=== PATIENT | female | born 1970 | race Caucasian/White ===

== ENCOUNTER → 2018-04-28 07:00 | Outpatient (CLI) | payer BC, SELFPAY ==
[2018-04-28 08:02] LABS: Add Manual Diff / Slide Review NO; Basophils Percent Auto 1.3 % (0-2); Eosinophils Percent Auto 5.6 % (2-4); Hematocrit 40.4 % (36-46); Hemoglobin 13.7 g/dL (12.0-16.0); Lymphocytes Percent Auto 22.5 % (25-40); Mean Corpuscular HGB Conc 33.9 % (30-36); Mean Corpuscular Hemoglobin 32.9 PG (26-34); Mean Corpuscular Volume 97.2 fL (80-100); Monocytes Percent Auto 6.7 % (3-14); Neutrophils Absolute Auto 5300 /uL (3000-5900); Neutrophils Percent Auto 63.9 % (50-75); Platelet Count 281 X10^3/uL (150-400); Red Blood Cell Count 4.15 X10^6/uL (4.0-5.2); Red Cell Distribution Width 12.9 % (11.6-14.8); White Blood Cell Count 8.2 X10^3/uL (4.5-11.0)
[2018-04-28 08:04] LABS: Appearance Urine UA CLEAR; Bilirubin Urine UA NEGATIVE (NEGATIVE); Color Urine UA YELLOW; Glucose Urine UA NEGATIVE (Normal); Ketones Urine UA NEGATIVE (NEGATIVE); Leukocyte Esterase Urine UA NEGATIVE (NEGATIVE); Nitrite Urine UA Negative (Negative); Occult Blood Urine UA 3+ (Negative); Protein Urine UA NEGATIVE (Negative); Urobilinogen Urine UA 0.2 E.U./dL (0.2); pH Urine UA 7.5 (4.5-8.0)
[2018-04-28 08:08] LABS: Alanine Aminotransferase 25 IU/L (9-52); Albumin 3.9 g/dL (3.5-5.0); Albumin Globulin Ratio 1.4 (1.0-2.8); Alkaline Phosphatase 52 U/L (38-126); Aspartate Aminotransferase 19 IU/L (14-36); BUN Creatinine Ratio 15.7 (6-22); Bilirubin Total 0.5 mg/dL (0.2-1.3); Blood Urea Nitrogen 11 mg/dL (7-17); Calcium 9.3 mg/dL (8.4-10.2); Carbon Dioxide 29 mmol/L (22-32); Chloride 104 mmol/L (98-107); Cholesterol 155 mg/dL (140-199); Estimated Glomerular Filt Rate > 60.0 mL/min (>60); Globulin 2.7 g/dL (1.7-4.1); Glucose 92 mg/dL (70-100); HDL Cholesterol 52 mg/dL (40-60); HEMOLYSIS < 15 (0-50); LDL Cholesterol Calculated 89 mg/dL (<100); Potassium 4.4 mmol/L (3.4-5.1); Sodium 141 mmol/L (137-145); Total Protein 6.6 g/dL (6.3-8.2); Triglycerides 70 mg/dL (35-150)
[2018-04-28 08:37] LABS: WBC Urine None Seen (0-5/HPF)
[2018-04-28 08:39] LABS: TSH w/ Reflex to FT4 1.51 uIU/mL (0.47-4.68)
[2018-04-28 08:40] LABS: RBC Urine 10-30/HPF (0-5/HPF)
[2018-04-28 08:41] LABS: Bacteria Urine Few (2-10); Culture Indicated Urine Cult Not Indicated; Squamous Epithelial Cell Urine 0-1 /HPF
[2018-04-28 09:00] LABS: Hemoglobin A1C% w Est Avg Glu 4.8 % (4.0-6.0)
== END ==
PROVIDERS: PCP Family Medicine; Visit Provider Nurse Practitioner Family
DX: Z00.00 Encounter for general adult medical examination without abnormal findings (principal); E66.9 Obesity, unspecified
CPT/HCPCS: 36415; 80053; 80061; 81003; 81015; 83036; 84443; 85025

== ENCOUNTER → 2018-06-15 15:01 | Outpatient (CLI) | payer BC, SELFPAY ==
--- NOTE | 2018-06-15 15:02 | DI.MG.S_ITS ---
BILATERAL DIGITAL SCREENING MAMMOGRAM 3D/2D WITH CAD: 06/15/2018 CLINICAL: Routine screening. Comparison is made to exams dated: 06/27/2015 mammogram, 08/24/2013 mammogram, and 04/04/2000 mammogram - [facility]. There are scattered fibroglandular elements in both breasts. Current study was also evaluated with a Computer Aided Detection (CAD) system. No significant masses, calcifications, or other findings are seen in either breast. There has been no significant interval change. IMPRESSION: NEGATIVE There is no mammographic evidence of malignancy. A 1 year screening mammogram is recommended. This exam was interpreted at Station ID: [id number]. NOTE: For mammograms, a report in lay terms will be sent to the patient. Approximately 15% of breast malignancies will not be visualized mammographically. In the management of a palpable breast mass, a negative mammogram must not discourage biopsy of a clinically suspicious lesion. Electronically Signed By: Jevon mariscal/[email or web address]:06/16/2018 02:37:18 letter sent: Normal Exam ACR BI-RADS Category 1: Negative 3341F
== END ==
PROVIDERS: PCP Family Medicine; Visit Provider Nurse Practitioner Family
DX: Z12.31 Encounter for screening mammogram for malignant neoplasm of breast (principal)
CPT/HCPCS: 77063; 77067

== ENCOUNTER → 2019-01-13 08:35 | Outpatient (CLI) | payer BC, SELFPAY ==
[2019-01-13 09:42] LABS: Add Manual Diff / Slide Review NO; Basophils Absolute Auto 100 /uL (0-100); Basophils Percent Auto 1.1 % (0-2); Eosinophils Absolute Auto 500 /uL (0-450); Eosinophils Percent Auto 6.1 % (2-4); Hematocrit 41.2 % (36-46); Hemoglobin 14.2 g/dL (12.0-16.0); Lymphocytes Absolute Auto 1900 /uL (1100-4500); Lymphocytes Percent Auto 21.3 % (25-40); Mean Corpuscular HGB Conc 34.5 % (30-36); Mean Corpuscular Volume 95.7 fL (80-100); Monocytes Absolute Auto 500 /uL (0-900); Monocytes Percent Auto 5.8 % (3-14); Neutrophils Absolute Auto 5700 /uL (1500-7000); Neutrophils Percent Auto 65.7 % (50-75); Platelet Count 289 X10^3/uL (150-400); Red Blood Cell Count 4.31 X10^6/uL (4.0-5.2); Red Cell Distribution Width 13.3 % (11.6-14.8); White Blood Cell Count 8.7 X10^3/uL (4.5-11.0)
[2019-01-13 09:51] LABS: Alanine Aminotransferase 24 IU/L (9-52); Albumin 4.1 g/dL (3.5-5.0); Albumin Globulin Ratio 1.5 (1.0-2.8); Alkaline Phosphatase 61 U/L (38-126); Aspartate Aminotransferase 19 IU/L (14-36); BUN Creatinine Ratio 13.3 (6-22); Bilirubin Total 0.5 mg/dL (0.2-1.3); Blood Urea Nitrogen 8 mg/dL (7-17); Calcium 9.1 mg/dL (8.4-10.2); Carbon Dioxide 24 mmol/L (22-32); Chloride 105 mmol/L (98-107); Cholesterol 173 mg/dL (140-199); Estimated Glomerular Filt Rate > 60.0 mL/min (>60); Globulin 2.8 g/dL (1.7-4.1); Glucose 93 mg/dL (70-100); HDL Cholesterol 61 mg/dL (40-60); HEMOLYSIS < 15 (0-50); LDL Cholesterol Calculated 93 mg/dL (<100); Potassium 4.5 mmol/L (3.4-5.1); Sodium 138 mmol/L (137-145); Total Protein 6.9 g/dL (6.3-8.2); Triglycerides 96 mg/dL (35-150)
[2019-01-13 11:10] LABS: Thyroid Stimulating Hormone 2.62 uIU/mL (0.47-4.68)
== END ==
PROVIDERS: PCP Physician Assistant; Visit Provider Physician Assistant
DX: Z00.00 Encounter for general adult medical examination without abnormal findings (principal); Z13.1 Encounter for screening for diabetes mellitus; Z13.220 Encounter for screening for lipoid disorders; Z13.6 Encounter for screening for cardiovascular disorders
CPT/HCPCS: 36415; 80053; 80061; 84443; 85025

== ENCOUNTER → 2019-10-24 10:27 | Outpatient (CLI) | payer BC, SELFPAY ==
[2019-10-24 10:57] LABS: Add Manual Diff / Slide Review NO; Basophils Absolute Auto 100 /uL (0-100); Basophils Percent Auto 1.9 % (0-2); Eosinophils Absolute Auto 500 /uL (0-450); Eosinophils Percent Auto 6.9 % (2-4); Hematocrit 39.1 % (36-46); Hemoglobin 13.8 g/dL (12.0-16.0); Lymphocytes Absolute Auto 1700 /uL (1100-4500); Lymphocytes Percent Auto 22.3 % (25-40); Mean Corpuscular HGB Conc 35.3 % (30-36); Mean Corpuscular Hemoglobin 33.4 PG (26-34); Mean Corpuscular Volume 94.5 fL (80-100); Monocytes Absolute Auto 500 /uL (0-900); Monocytes Percent Auto 6.2 % (3-14); Neutrophils Absolute Auto 4800 /uL (1500-7000); Neutrophils Percent Auto 62.7 % (50-75); Platelet Count 267 X10^3/uL (150-400); Red Blood Cell Count 4.14 X10^6/uL (4.0-5.2); Red Cell Distribution Width 13.2 % (11.6-14.8); White Blood Cell Count 7.7 X10^3/uL (4.5-11.0)
[2019-10-24 11:10] LABS: Alanine Aminotransferase 16 IU/L (<35); Albumin 4.3 g/dL (3.5-5.0); Albumin Globulin Ratio 1.5 (1.0-2.8); Alkaline Phosphatase 62 U/L (38-126); Aspartate Aminotransferase 21 IU/L (14-36); BUN Creatinine Ratio 15.7 (6-22); Bilirubin Total 0.6 mg/dL (0.2-1.3); Blood Urea Nitrogen 11 mg/dL (7-17); Calcium 9.6 mg/dL (8.4-10.2); Carbon Dioxide 27 mmol/L (22-32); Chloride 105 mmol/L (98-107); Cholesterol 183 mg/dL (140-199); Estimated Glomerular Filt Rate > 60.0 mL/min (>60); Globulin 2.9 g/dL (1.7-4.1); Glucose 82 mg/dL (70-100); HDL Cholesterol 56 mg/dL (40-60); HEMOLYSIS < 15 (0-50); LDL Cholesterol Calculated 108 mg/dL (<100); Potassium 4.2 mmol/L (3.4-5.1); Sodium 139 mmol/L (137-145); Total Protein 7.2 g/dL (6.3-8.2); Triglycerides 93 mg/dL (35-150)
[2019-10-24 11:48] LABS: Thyroid Stimulating Hormone 1.01 uIU/mL (0.47-4.68)
== END ==
PROVIDERS: PCP Physician Assistant; Visit Provider Physician Assistant
DX: Z00.00 Encounter for general adult medical examination without abnormal findings (principal)
CPT/HCPCS: 36415; 80053; 80061; 84443; 85025

== ENCOUNTER → 2020-08-13 09:52 | Outpatient (CLI) | payer BC, SELFPAY ==
--- NOTE | 2020-08-13 09:53 | DI.RAD.S_ITS ---
PROCEDURE: XR HIP W PEL IF DONE LT MIN 4V INDICATIONS: bilateral hip pain and LBP x years TECHNIQUE: AP pelvis with lateral view(s) of the bilateral hip(s). COMPARISON: None. FINDINGS: Bones: No fractures or dislocations. Pelvic ring appears intact. No suspicious bony lesions. Soft tissues: The visualized bowel gas pattern is normal. No suspicious soft tissue calcifications. IMPRESSION: No trauma found, no significant degenerative change identified. Dictated by: Malik North M.D. on 08/13/2020 at 10:17 Approved by: Malik North M.D. on 08/13/2020 at 10:18
--- NOTE | 2020-08-13 09:53 | DI.RAD.S_ITS ---
PROCEDURE: XR LUMBAR SPINE 2-3V INDICATIONS: bilateral hip pain and LBP x years TECHNIQUE: 3 views of the lumbar spine were acquired. COMPARISON: None. FINDINGS: Bones: 5 [id number] vertebrae are present. There is normal bony alignment. No vertebral body compression fractures. No suspicious bony lesions. Soft tissues: Overlying bowel gas pattern is normal. No suspicious soft tissue calcifications. IMPRESSION: No spinal or foraminal stenosis suspected. No prior compression fracture found. Dictated by: Malik North M.D. on 08/13/2020 at 10:17 Approved by: Malik North M.D. on 08/13/2020 at 10:17
== END ==
PROVIDERS: PCP Registered Nurse Diabetes Educator; Referring Provider Registered Nurse Diabetes Educator; Visit Provider Registered Nurse Diabetes Educator
DX: M25.551 Pain in right hip (principal); M25.552 Pain in left hip; M54.5 Low back pain; G89.29 Other chronic pain
CPT/HCPCS: 72100; 73522

== ENCOUNTER → 2020-08-29 15:25 | Outpatient (CLI) | payer BC, SELFPAY ==
--- NOTE | 2020-08-29 15:26 | DI.MG.S_ITS ---
BILATERAL DIGITAL SCREENING MAMMOGRAM 3D/2D WITH CAD: 08/29/2020 CLINICAL: Routine screening. Comparison is made to exams dated: 06/15/2018 mammogram, 06/27/2015 mammogram, and 08/24/2013 mammogram - [facility]. There are scattered fibroglandular elements in both breasts. Current study was also evaluated with a Computer Aided Detection (CAD) system. No significant masses, calcifications, or other findings are seen in either breast. IMPRESSION: NEGATIVE There is no mammographic evidence of malignancy. A 1 year screening mammogram is recommended. This exam was interpreted at Station ID: [id number]. NOTE: For mammograms, a report in lay terms will be sent to the patient. Approximately 15% of breast malignancies will not be visualized mammographically. In the management of a palpable breast mass, a negative mammogram must not discourage biopsy of a clinically suspicious lesion. Electronically Signed By: Fartun chen/jonatan:09/02/2020 10:26:05 letter sent: Normal Exam ACR BI-RADS Category 1: Negative 3341F
== END ==
PROVIDERS: PCP Registered Nurse Diabetes Educator; Referring Provider Registered Nurse Diabetes Educator; Visit Provider Registered Nurse Diabetes Educator
DX: Z12.31 Encounter for screening mammogram for malignant neoplasm of breast (principal)
CPT/HCPCS: 77063; 77067

== ENCOUNTER → 2021-01-10 08:05 | Outpatient (CLI) | payer OTHER, SELFPAY ==
[2021-01-10 09:17] LABS: Hematocrit 40.4 % (36-46); Hemoglobin 13.9 g/dL (12.0-16.0); Mean Corpuscular HGB Conc 34.5 % (30-36); Mean Corpuscular Hemoglobin 32.9 PG (26-34); Mean Corpuscular Volume 95.6 fL (80-100); Platelet Count 266 X10^3/uL (150-400); Red Blood Cell Count 4.23 X10^6/uL (4.0-5.2); Red Cell Distribution Width 12.6 % (11.6-14.8); White Blood Cell Count 8.2 X10^3/uL (4.5-11.0)
[2021-01-10 09:36] LABS: Alanine Aminotransferase 25 IU/L (<35); Albumin 4.1 g/dL (3.5-5.0); Albumin Globulin Ratio 1.5 (1.0-2.8); Alkaline Phosphatase 76 U/L (38-126); Aspartate Aminotransferase 26 IU/L (14-36); BUN Creatinine Ratio 14.7 (6-22); Bilirubin Total 0.5 mg/dL (0.2-1.3); Blood Urea Nitrogen 10 mg/dL (7-17); Carbon Dioxide 28 mmol/L (22-32); Chloride 104 mmol/L (98-107); Cholesterol 199 mg/dL (140-199); Estimated Glomerular Filt Rate > 60.0 mL/min (>60); Globulin 2.8 g/dL (1.7-4.1); Glucose 95 mg/dL (70-100); HDL Cholesterol 68 mg/dL (40-60); HEMOLYSIS < 15 (0-50); LDL Cholesterol Calculated 110 mg/dL (<100); Potassium 4.3 mmol/L (3.4-5.1); Sodium 138 mmol/L (137-145); Total Protein 6.9 g/dL (6.3-8.2); Triglycerides 107 mg/dL (35-150)
[2021-01-10 10:45] LABS: TSH w/ Reflex to FT4 1.93 uIU/mL (0.47-4.68)
== END ==
PROVIDERS: PCP Registered Nurse Diabetes Educator; Referring Provider Registered Nurse Diabetes Educator; Visit Provider Registered Nurse Diabetes Educator
DX: Z00.00 Encounter for general adult medical examination without abnormal findings (principal)
CPT/HCPCS: 36415; 80053; 80061; 84443; 85027

== ENCOUNTER → 2021-05-02 09:50 | Outpatient (CLI) | payer OTHER, SELFPAY ==
[2021-05-02 10:48] LABS: COVID19 -Nasal RAPID POSITIVE (Negative)
== END ==
PROVIDERS: PCP Registered Nurse Diabetes Educator; Visit Provider Student in an Organized Health Care Education/Training Program
DX: U07.1 COVID-19 (principal)
CPT/HCPCS: 87635

== ENCOUNTER → 2021-09-08 08:26 | Outpatient (CLI) | payer OTHER, SELFPAY ==
--- NOTE | 2021-09-08 | DI.MG.S_ITS ---
BILATERAL DIGITAL SCREENING MAMMOGRAM 3D/2D WITH CAD: 09/08/2021 CLINICAL: Routine screening. Comparison is made to exams dated: 08/29/2020 mammogram, 06/15/2018 mammogram, and 06/27/2015 mammogram - [facility]. There are scattered fibroglandular elements in both breasts. Current study was also evaluated with a Computer Aided Detection (CAD) system. No significant masses, calcifications, or other findings are seen in either breast. There has been no significant interval change. IMPRESSION: NEGATIVE There is no mammographic evidence of malignancy. A 1 year screening mammogram is recommended. This exam was interpreted at Station ID: [id number]. NOTE: For mammograms, a report in lay terms will be sent to the patient. Approximately 15% of breast malignancies will not be visualized mammographically. In the management of a palpable breast mass, a negative mammogram must not discourage biopsy of a clinically suspicious lesion. Electronically Signed By: Goldy Evans M.D. at/jonatan:09/08/2021 13:02:58 letter sent: Normal Exam ACR BI-RADS Category 1: Negative 3341F
== END ==
PROVIDERS: PCP Registered Nurse Diabetes Educator; Referring Provider Registered Nurse Diabetes Educator; Visit Provider Registered Nurse Diabetes Educator
DX: Z12.31 Encounter for screening mammogram for malignant neoplasm of breast (principal)
CPT/HCPCS: 77063; 77067

== ENCOUNTER → 2022-03-04 15:51 | Outpatient (CLI) | payer OTHER, SELFPAY ==
[2022-03-04 16:15] LABS: COVID19 -Nasal RAPID Negative (Negative)
== END ==
PROVIDERS: PCP Registered Nurse Diabetes Educator; Visit Provider Surgery
DX: Z01.812 Encounter for preprocedural laboratory examination (principal); Z20.822 Contact with and (suspected) exposure to COVID-19
CPT/HCPCS: 87635; C9803

== ENCOUNTER 2022-03-05 08:13 | Day surgery (SDC) | payer OTHER, SELFPAY ==
[2022-03-05 08:32] VITALS: BP 117/82; PULSE 76; RESP 16; TEMP 36.4; O2SAT 98
[2022-03-05 08:36] VITALS: BMI 30.2
[2022-03-05] MEDS: LACTATED RINGERS 1,000 ML 150 ML IV (08:50)
--- NOTE | 2022-03-05 08:53 | PM.HP.1 ---
History of Present Illness History of Present Illness Date Patient Seen: 03/05/22 Time Patient Seen: 08:53 Chief complaint: SDC Narrative: first colonoscopy for colon cancer screening. No family history or symptoms concerning for colon cancer Patient History Medical History Adjustment disorder with mixed anxiety and depressed mood Chicken pox (1975) Chronic headaches Chronic low back pain CTS (carpal tunnel syndrome) Elevated LDL cholesterol level Hip pain, bilateral Migraines (2009) Surgical History Anesthesia Status post delivery (11/28/95) Family & Social History Family History Father Heart disease Hypertension Mesothelioma Grandfather Cancer Mother Age: 68 COPD (chronic obstructive pulmonary disease) Grandfather Cancer Grandmother Cancer Social History: household members spouse Tobacco & Substance use: Smoking Status Never smoker alcohol intake current alcohol intake frequency other Substance Use Type does not use Meds Home Medications and Allergies Home Medications Medication Instructions Recorded Confirmed Type lorazepam 0.5 mg tablet 0.5 mg PO BEDTIME PRN #20 tab 05/09/20 03/05/22 Rx triamcinolone acetonide 0.5 % 1 applictn TOP DAILY PRN #45 gram 05/15/20 03/05/22 Rx topical cream omeprazole 20 mg capsule,delayed 20 mg PO DAILY PRN #90 cap 01/14/21 03/05/22 Rx release sumatriptan succinate 100 mg 100 mg PO PRN PRN #30 tab 07/27/21 03/05/22 Rx tablet (Imitrex) meloxicam 7.5 mg tablet 15 mg PO DAILY #60 tab 03/02/22 03/05/22 Rx Allergies Allergy/AdvReac Type Severity Reaction Status Date / Time No Known Drug Allergies Allergy Verified 03/05/22 08:34 Review of Systems Review of Systems ROS: Yes All systems reviewed with the patient and are negative except as otherwise documented Exam Vital Signs (past 8 hours): - 03/05/22 08:32 Temperature 97.6 F Pulse Rate 76 Respiratory Rate 16 Blood Pressure 117/82 Pulse Oximetry 98 Oxygen Delivery Method Room Air Const General: cooperative and healthy appearing Nutritional Appearance: average body habitus Orientation: alert, awake and oriented x3 HENMT Head: normal to inspection, normocephalic and atraumatic Eyes General: appearance normal, both eyes and all related structures Sclera: sclerae normal Neck Neck: normal visual inspection and full ROM Chest Chest: normal inspection of the chest Resp Effort & Inspection: normal respiratory effort and able to speak in complete sentences Cardio Rate: regular rate Rhythm: regular rhythm GI Inspection: normal to inspection Skin General: no rashes or lesions noted Neuro General: patient alert and patient oriented x3 Speech: speech normal Extrem General: normal to inspection and full ROM Psych Mental Status: mental status grossly normal Judgment: judgment good Assessment & Plan Assessment & Plan narrative: colonoscopy for colon cancer screening using moderate sedation COVID-19 COVID-19 status: Negative Time Spent With Patient Time with patient: less than 30 minutes Critical Care time: I spent a total of [] minutes of critical care time on this patient's care today; this time is exclusive of procedural time.
--- NOTE | 2022-03-05 09:01 | PM.OP.COLON ---
Operative Date/Time/Diagnoses Date of procedure: 03/05/22 Time of procedure: 09:01 Pre-op diagnosis: colon cancer screening Post-op diagnosis: same Procedure & Clinicians Study performed: colonoscopy with moderate sedation Same procedure as scheduled: Yes Indications: Colon cancer screening Surgeon: Pina Cary Procedure Notes SCOAP/Timeout: Done Procedure in detail: Preop diagnosis: Colon cancer screening Postop diagnosis: Same Operative procedure: Colonoscopy with moderate sedation Surgeon: Maura Cary MD anesthetic: Versed 5 mg fentanyl 100 mcg Findings: Normal colonoscopy. No polyps, no diverticula Procedure: Patient placed in lateral position. Rectal exam performed showing normal tone no masses. Colonoscope inserted into the rectum and advanced to ileocecal valve with minimal difficulty. Insufflation extraction scope with the above findings. Impression: Normal colonoscopy. Excellent bowel prep. No polyps, no diverticuli Plan: Repeat colonoscopy in 10 years unless otherwise indicated by change in family history or clinical condition Sedation minutes: 13 Specimen(s): none sent Post-procedure Recommendations: Colonoscopy in 10 years Follow up: as needed Disposition: PACU
[2022-03-05] MEDS: MIDAZOLAM 5 MG/5 ML VIAL IV (09:09)
[2022-03-05] MEDS: fentaNYL 250 MCG/5 ML INJ 100 MCG IV (09:09)
[2022-03-05 09:27] VITALS: BP 118/75; PULSE 65; RESP 14; TEMP 36.1; O2SAT 96
[2022-03-05 09:31] VITALS: BP 118/74; PULSE 63; RESP 12; O2SAT 96
[2022-03-05 09:37] VITALS: BP 107/82; PULSE 84; RESP 16; O2SAT 97
[2022-03-05 09:42] VITALS: BP 107/69; PULSE 65; RESP 12; O2SAT 96
== END 2022-03-05 09:51 | disposition home or self-care (01) ==
PROVIDERS: PCP Registered Nurse Diabetes Educator; Referring Provider Surgery; Visit Provider Surgery
PROC: 0DJD8ZZ Inspection of Lower Intestinal Tract, Via Natural or Artificial Opening Endoscopic (ICD-10-PCS; CPT 45378; principal; 2022-03-05 09:15)
DX: Z12.11 Encounter for screening for malignant neoplasm of colon (principal)
CPT/HCPCS: 45378; 99152; J2250; J3010

== ENCOUNTER 2022-05-09 11:27 | Emergency (ER) | payer OTHER, SELFPAY ==
[2022-05-09 11:38] VITALS: BP 133/79; PULSE 62; RESP 16; TEMP 36.5; O2SAT 99; BMI 31.1
--- NOTE | 2022-05-09 11:55 | DI.CT.S_ITS ---
PROCEDURE: CT CHEST ABDOMEN W CON INDICATIONS: fall TECHNIQUE: After the administration of intravenous contrast, 5 mm thick sections acquired from the lung apices to the iliac crests. 5 mm coronal and sagittal reformats were performed, with additional 7 mm coronal MIP reformats through the lungs. For radiation dose reduction, the following was used: automated exposure control, adjustment of mA and/or kV according to patient size. COMPARISON: None. FINDINGS: Image quality: Excellent. CHEST: Lungs and pleura: No acute airspace opacities. No pleural effusions or pneumothorax. Central and peripheral airways appear patent and normal in caliber. Multiple calcified granulomas are noted. Mediastinum: Heart size is normal. No pericardial effusion. No mediastinal or hilar adenopathy by size criteria. Multiple calcified mediastinal/hilar lymph nodes Thoracic aorta and central pulmonary arteries are normal in size. Esophagus is normal in caliber. No hiatal hernia. Chest wall: No axillary or supraclavicular adenopathy by size criteria. Thyroid gland is unremarkable. ABDOMEN: Solid organs: Liver is normal in size and enhancement. Gallbladder is unremarkable. Biliary system is non dilated. Pancreas enhances normally. Spleen is normal in size and enhancement. Multiple punctate calcifications.. No adrenal nodules. Kidneys demonstrate normal size and enhancement, without hydronephrosis. Peritoneum and bowel: Bowel loops demonstrate normal wall thickness and caliber. No free fluid or air. Nodes and vessels: No retroperitoneal or mesenteric adenopathy by size criteria. Aorta and inferior vena cava are normal in size. Bones: No suspicious bony lesions. No vertebral body compression fractures. Miscellaneous: No ventral hernias. IMPRESSION: No acute abnormality of the chest or abdomen. Sequela of prior granulomatous disease. Dictated by: Rob Uribe D.O. on 05/09/2022 at 12:10 Approved by: Rob Uribe D.O. on 05/09/2022 at 12:17
--- NOTE | 2022-05-09 11:55 | DI.CT.S_ITS ---
PROCEDURE: CT HEAD/BRAIN WO CON INDICATIONS: fall TECHNIQUE: Noncontrast 4.5 mm thick angled axial sections acquired from the foramen magnum to the vertex, with coronal and sagittal reformats. For radiation dose reduction, the following was used: automated exposure control, adjustment of mA and/or kV according to patient size. COMPARISON: [facility], CT, HEAD WITHOUT CONTRAST, 03/02/2009, 18:12. FINDINGS: Image quality: Excellent. CSF spaces: Basal cisterns are patent. No extra-axial fluid collections. Ventricles are normal in size and shape. Brain: No midline shift. No intracranial masses or hemorrhage. Vidal-white matter interface is normal. Skull and face: Calvarium and visualized facial bones are intact, without suspicious lesions. Sinuses: Visualized sinuses and mastoids are clear. IMPRESSION: No evidence of an acute intracranial abnormality. Dictated by: Rob Uribe D.O. on 05/09/2022 at 12:07 Approved by: Rob Uribe D.O. on 05/09/2022 at 12:10
[2022-05-09] MEDS: IBUPROFEN 400 MG TABLET 800 MG PO (12:05)
[2022-05-09] MEDS: ACETAMINOPHEN 325 MG TABLET 650 MG PO (12:05)
[2022-05-09] MEDS: OXYCODONE/ACETAMINOPHEN 5/325 TABLET 1 TAB PO (12:06)
[2022-05-09 12:16] LABS: Add Manual Diff / Slide Review NO; Basophils Absolute Auto 100 /uL (0-100); Basophils Percent Auto 1.2 % (0-2); Eosinophils Absolute Auto 600 /uL (0-450); Eosinophils Percent Auto 6.3 % (2-4); Hematocrit 39.1 % (36-46); Hemoglobin 13.3 g/dL (12.0-16.0); Lymphocytes Absolute Auto 2600 /uL (1100-4500); Lymphocytes Percent Auto 27.5 % (25-40); Mean Corpuscular HGB Conc 34.2 % (30-36); Mean Corpuscular Hemoglobin 32.4 PG (26-34); Mean Corpuscular Volume 94.7 fL (80-100); Monocytes Absolute Auto 600 /uL (0-900); Monocytes Percent Auto 6.4 % (3-14); Neutrophils Absolute Auto 5500 /uL (1500-7000); Neutrophils Percent Auto 58.6 % (50-75); Platelet Count 286 X10^3/uL (150-400); Red Blood Cell Count 4.12 X10^6/uL (4.0-5.2); Red Cell Distribution Width 12.9 % (11.6-14.8); White Blood Cell Count 9.4 X10^3/uL (4.5-11.0)
[2022-05-09 12:30] VITALS: BP 150/70; PULSE 80; RESP 18; O2SAT 98
[2022-05-09 12:33] LABS: Alanine Aminotransferase 21 IU/L (<35); Albumin 4.2 g/dL (3.5-5.0); Albumin Globulin Ratio 1.4 (1.0-2.8); Alkaline Phosphatase 70 U/L (38-126); Aspartate Aminotransferase 24 IU/L (14-36); BUN Creatinine Ratio 16.4 (6-22); Bilirubin Total 0.4 mg/dL (0.2-1.3); Blood Urea Nitrogen 11 mg/dL (7-17); Calcium 9.2 mg/dL (8.4-10.2); Carbon Dioxide 26 mmol/L (22-32); Chloride 105 mmol/L (98-107); Estimated Glomerular Filt Rate > 60 mL/min (>60); Globulin 2.9 g/dL (1.7-4.1); Glucose 129 mg/dL (70-100); HEMOLYSIS < 15 (0-50); Sodium 139 mmol/L (137-145); Total Protein 7.1 g/dL (6.3-8.2)
--- NOTE | 2022-05-09 12:44 | ED_ITS ---
HPI - Fall General Chief Complaint: Trauma Stated Complaint: fell off ladder hit table arm numb rib hurts centf Time Seen by Provider: 05/09/22 12:01 Source: patient Mode of arrival: Ambulatory History of Present Illness HPI Narrative: 51-year-old female, nonsmoker, presents to the emergency department after falling off a ladder approximately 1/2 hour prior to ED arrival. Patient reports that she in her garage on a ladder to reaching into a Tote that was approximately 8 ft above the ground. Patient reports that her foot slipped and she fell off a ladder and hit her left thorax against their wooden workbench. Patient believes she may have hit her head but denies any loss of consciousness. Patient endorses left thoracic pain with deep breaths. Related Data Previous Rx's Medication Instructions Recorded lorazepam 0.5 mg tablet 0.5 mg PO BEDTIME PRN anxiety #20 05/09/20 tabs triamcinolone acetonide 0.5 % 1 applictn topical DAILY PRN rash 05/15/20 topical cream #45 grams omeprazole 20 mg capsule,delayed 20 mg PO DAILY PRN GERD #90 caps 01/14/21 release sumatriptan succinate 100 mg 100 mg PO PRN PRN migraine 07/27/21 tablet (Imitrex) headache #30 tabs meloxicam 7.5 mg tablet 15 mg PO DAILY #60 tabs 03/02/22 oxycodone-acetaminophen 5 mg-325 1 tab PO Q6H PRN pain #10 tabs 05/09/22 mg tablet Allergies Allergy/AdvReac Type Severity Reaction Status Date / Time No Known Drug Allergies Allergy Verified 03/05/22 08:34 Review of Systems Review of Systems Narrative: Narrative: GENERAL: Denies chills, fatigue, fever, sweats. See HPI HEENT: Denies sinus pain, ear pain, sore throat, difficulty swallowing, dizziness. RESPIRATORY: Denies cough, wheezing, sputum. CARDIOVASCULAR: Denies palpitations, edema. GASTROINTESTINAL: Denies nausea, vomiting, abdominal pain, diarrhea, constipation. : Denies dysuria, frequency, incontinence, hematuria, urinary retention, flank pain. MSK: Denies weakness, joint pain, or bony pain. Left thorax pain, where she hit the work bench. SKIN: Denies rash, skin lesions, or pruritis. NEUROLOGIC: Denies weakness, dizziness, headache, numbness, confusion. No loss of consciousness. PSYCHIATRIC: No concerning psychosocial issues. Patient History Medical History Adjustment disorder with mixed anxiety and depressed mood Chicken pox (1975) Chronic headaches Chronic low back pain CTS (carpal tunnel syndrome) Elevated LDL cholesterol level Hip pain, bilateral Migraines (2009) Surgical History Anesthesia Status post delivery (11/28/95) Family History Father Heart disease Hypertension Mesothelioma Grandfather Cancer Mother Age: 68 COPD (chronic obstructive pulmonary disease) Grandfather Cancer Grandmother Cancer Social History household members: spouse Smoking Status: Never smoker second hand exposure: Yes (I was when I was growing up. My mom and dad smoked.) alcohol intake: current substance use type: does not use Smoking Status: Never smoker alcohol intake frequency: other Substance Use Type: does not use Exam Narrative Exam Narrative: Exam Narrative: GENERAL: This is a well-nourished, well-developed patient, in no acute distress HEAD: Atraumatic. Normocephalic. No Vazquez signs or raccoon eyes. EYES: Pupils equal round and reactive. Extraocular motions intact. No scleral icterus, injection or drainage. ENT: Nose without bleeding, purulent drainage. Throat without erythema, tonsillar hypertrophy or exudate. Airway patent. NECK: Trachea midline. No JVD or lymphadenopathy. Nontender. CARDIOVASCULAR: Regular rate and rhythm without murmurs, peripheral pulses intact, cap refill <2 sec. RESPIRATORY: Breath sounds equal and clear bilaterally. No wheezes, rales, or rhonchi. No cough. No increased respiratory effort. No accessory muscle use. GASTROINTESTINAL: Abdomen soft, non-tender, nondistended without guarding or rebound. No suprapubic pain. MSK: Moves all extremities. Normal range of motion, no clubbing or edema. Neurovascularly intact. Left thorax is painful to palpation with no obvious deformity or bruising. NEURO: A&O x 3. SKIN: Warm, dry, no rashes or lesions noted. Initial Vital Signs Initial Vital Signs: Vital Signs Temperature 97.7 F 05/09/22 11:38 Pulse Rate 62 05/09/22 11:38 Respiratory Rate 16 05/09/22 11:38 Blood Pressure 133/79 05/09/22 11:38 Pulse Oximetry 99 05/09/22 11:38 Oxygen Delivery Method 05/09/22 11:38 Reviewed Course Orders Ordered: ED Orders 05/09/22 11:54 Urinalysis and Microscopic Stat 05/09/22 11:55 CT chest abdomen w con Stat CT head/brain wo con Stat 05/09/22 12:00 CBC Auto Diff [Complete Blood Count AUTO DIFF] Stat CMP [Comprehensive Metabolic Panel] Stat Discontinued Medications Acetaminophen (Acetaminophen 325 Mg Tablet) 650 mg PO NOW ONE Stop: 05/09/22 11:58 Last Admin: 05/09/22 12:05 Dose: 650 mg Documented By: HOWARD Ibuprofen (Ibuprofen 400 Mg Tablet) 800 mg PO NOW ONE Stop: 05/09/22 11:59 Last Admin: 05/09/22 12:05 Dose: 800 mg Documented By: HOWARD Oxycodone/Acetaminophen (Oxycodone/Acetaminophen 5/325 Tablet) 1 tab PO NOW ONE Stop: 05/09/22 11:59 Last Admin: 05/09/22 12:06 Dose: 1 tab Documented By: HOWARD Vital Signs Vital signs: Vital Signs - 8 hr 05/09/22 11:38 05/09/22 12:15 Temperature 97.7 F Pulse Rate 62 Respiratory Rate 16 Blood Pressure 133/79 Pulse Oximetry 99 Oxygen Delivery Method Room Air Room Air MDM - Fall Differential Diagnosis Differential diagnosis: Likely other (Fall injury) Lab Data Result diagrams: 05/09/22 12:00 05/09/22 12:00 Labs: Lab Results 05/09/22 05/09/22 Range/Units 12:00 12:00 WBC 9.4 (4.5-11.0) X10^3/uL RBC 4.12 (4.0-5.2) X10^6/uL Hgb 13.3 (12.0-16.0) g/dL Hct 39.1 (36-46) % MCV 94.7 (80-100) fL MCH 32.4 (26-34) PG MCHC 34.2 (30-36) % RDW 12.9 (11.6-14.8) % Plt Count 286 (150-400) X10^3/uL Neut % (Auto) 58.6 (50-75) % Lymph % (Auto) 27.5 (25-40) % Harford % (Auto) 6.4 (3-14) % Eos % (Auto) 6.3 H (2-4) % Baso % (Auto) 1.2 (0-2) % Neut # (Auto) 5500 (7937-3388) /uL Lymph # (Auto) 2600 (1829-1439) /uL Harford # (Auto) 600 (0-900) /uL Eos # (Auto) 600 H (0-450) /uL Baso # (Auto) 100 (0-100) /uL Sodium 139 (137-145) mmol/L Potassium 4.0 (3.4-5.1) mmol/L Chloride 105 (98-107) mmol/L Carbon Dioxide 26 (22-32) mmol/L BUN 11 (7-17) mg/dL Creatinine 0.67 (0.52-1.04) mg/dL Estimated GFR > 60 (>60) mL/min BUN/Creatinine Ratio 16.4 (6-22) Glucose 129 H (70-100) mg/dL Calcium 9.2 (8.4-10.2) mg/dL Total Bilirubin 0.4 (0.2-1.3) mg/dL AST 24 (14-36) IU/L ALT 21 (<35) IU/L Alkaline Phosphatase 70 (38-126) U/L Total Protein 7.1 (6.3-8.2) g/dL Albumin 4.2 (3.5-5.0) g/dL Globulin 2.9 (1.7-4.1) g/dL Albumin/Globulin Ratio 1.4 (1.0-2.8) Imaging Data CT scan - head: Radiologist's Impression: [address] [address] [address] Scan Report Signed Patient: Kristie Mcdonald MR#: [id number] : 1970 Acct:[id number] Age/Sex: 51 / F Date of Service: 05/09/22 Loc: ED Accession Number: [id number] ?? Procedure: CT head/brain wo con Ordering Provider: Kalyan Blackman MD PROCEDURE:? CT HEAD/BRAIN WO CON ? INDICATIONS:? fall ? TECHNIQUE:? Noncontrast 4.5 mm thick angled axial sections acquired from the foramen magnum to the vertex, with coronal and sagittal reformats.? For radiation dose reduction, the following was used:? automated exposure control, adjustment of mA and/or kV according to patient size.? ? COMPARISON:? [facility], CT, HEAD WITHOUT CONTRAST, 03/02/2009, 18:12. ? FINDINGS:? Image quality:? Excellent.? ? CSF spaces:? Basal cisterns are patent.? No extra-axial fluid collections.? Ventricles are normal in size and shape.? ? Brain:? No midline shift.? No intracranial masses or hemorrhage.? Vidal-white matter interface is normal.? ? Skull and face:? Calvarium and visualized facial bones are intact, without suspicious lesions.? ? Sinuses:? Visualized sinuses and mastoids are clear.? ? IMPRESSION:? ? No evidence of an acute intracranial abnormality. ? ? Dictated by: Rob Uribe D.O. on 05/09/2022 at 12:07 ? ? Approved by: Rob Uribe D.O. on 05/09/2022 at 12:10 ? CT scan - chest: Radiologist's Impression: [place] [address] CT Scan Report Signed Patient: Kristie Mcdonald MR#: [id number] : 1970 Acct:[id number] Age/Sex: 51 / F Date of Service: 05/09/22 Loc: ED Accession Number: [id number] ?? Procedure: CT chest abdomen w con Ordering Provider: Kalyan Blackman MD PROCEDURE:? CT CHEST ABDOMEN W CON ? INDICATIONS:? fall ? TECHNIQUE:? After the administration of intravenous contrast, 5 mm thick sections acquired from the lung apices to the iliac crests.? 5 mm coronal and sagittal reformats were performed, with additional 7 mm coronal MIP reformats through the lungs.? For radiation dose reduction, the following was used:? automated exposure control, adjustment of mA and/or kV according to patient size.? ? COMPARISON:? None. ? FINDINGS:? Image quality:? Excellent.? ? CHEST:? Lungs and pleura:? No acute airspace opacities.? No pleural effusions or pneumothorax.? Central and peripheral airways appear patent and normal in caliber.? Multiple calcified granulomas are noted. ? Mediastinum:? Heart size is normal.? No pericardial effusion.? No mediastinal or hilar adenopathy by size criteria.? Multiple calcified mediastinal/hilar lymph nodes Thoracic aorta and central pulmonary arteries are normal in size.? Esophagus is normal in caliber. ?No hiatal hernia.? ? Chest wall:? No axillary or supraclavicular adenopathy by size criteria.? Thyroid gland is unremarkable.? ? ? ABDOMEN:? Solid organs:? Liver is normal in size and enhancement.? Gallbladder is unremarkable.? Biliary system is non dilated.? Pancreas enhances normally.? Spleen is normal in size and enhancement.? Multiple punctate calcifications..? No adrenal nodules.? Kidneys demonstrate normal size and enhancement, without hydronephrosis.? ? Peritoneum and bowel:? Bowel loops demonstrate normal wall thickness and caliber.? No free fluid or air.? ? Nodes and vessels:? No retroperitoneal or mesenteric adenopathy by size criteria.? Aorta and inferior vena cava are normal in size.? ? Bones:? No suspicious bony lesions.? No vertebral body compression fractures.? ? Miscellaneous:? No ventral hernias.? ? IMPRESSION:? ? No acute abnormality of the chest or abdomen. ? Sequela of prior granulomatous disease. ? ? Dictated by: Rob Uribe D.O. on 05/09/2022 at 12:10 ? ? Approved by: Rob Uribe D.O. on 05/09/2022 at 12:17 ? MDM Narrative Medical decision making narrative: 51-year-old female, nonsmoker, presents emergency department with left-sided thorax pain secondary to falling off a ladder at approximately 8 ft landing on a wooden work bench. Head CT and chest CT were both normal. Assessment was unremarkable with the exception of left thorax tenderness with palpation. Recommended rest, ice or heat to the affected area and NSAIDs. Will give a short course of pain medication. Instructed patient to follow up with her family doctor later this week. Discussed return precautions and plan of care with patient, who is agreeable with course of action. Discharge Plan Departure Patient Disposition: Home Clinical Impression: Fall with injury Instructions: DI for Trauma Activity Restrictions/Additional Instructions: *You have been diagnosed with a fall injury. Your head and chest CT were both normal, and therefore I do not suspect anything dangerous at this time. I recommend you get plenty of rest, apply hot or cold compress to the affected area, take ibuprofen 600 mg by mouth 3 times a day with food for the next 3-5 days. I will give you short course of pain medication. Please follow-up with your family doctor this week without fail. For any worsening symptoms that include intolerable pain, vision changes, etc., please return to the emergency department. *What to do: *Please continue to take your regular medications as directed. [ ] New medication prescriptions sent to your pharmacy: [ ] [x ] New medication written as a paper prescription [ ] No new medications given *Please follow up with your primary care provider in 2-3 days, call for an appointment. Let them know you were seen in the Emergency Department and that we ask that you be seen in follow up. We will electronically transmit a record of today's note if your PCP is in our system *If you do not have a primary care provider please contact the [facility] Resource line at [phone]. They will ask some questions about your medical history and help get you set up with a doctor in the community. ? Return to ER if you should have any new, worsening or concerning symptoms, such as worsening pain, severe headache, confusion, chest pain, difficulty breathing, fever greater than 101 F, shaking chills, persistent vomiting to the point that you cannot drink fluids, or other new or worsening symptoms. Prescriptions: New oxycodone-acetaminophen 5-325 mg tablet 1 tab PO Q6H PRN (Reason: pain) Qty: 10 0RF No Action triamcinolone acetonide 0.5 % cream 1 applictn TOP DAILY PRN (Reason: rash) Qty: 45 1RF sumatriptan succinate [Imitrex] 100 mg tablet 100 mg PO PRN PRN (Reason: migraine headache) Qty: 30 2RF Rx Instructions: Take one tab at onset of migraine. May repeat in 2 hours. Maximum of 2 tabs per day. meloxicam 7.5 mg tablet 15 mg PO DAILY Qty: 60 2RF Label Comments: OVER A MONTH OR SO omeprazole 20 mg capsule,delayed release(DR/EC) 20 mg PO DAILY PRN (Reason: GERD) Qty: 90 0RF lorazepam 0.5 mg tablet 0.5 mg PO BEDTIME PRN (Reason: anxiety) Qty: 20 0RF Label Comments: OVER MONTH AGO Referrals: Marquez Yuan ARNP [Primary Care Provider] -
[2022-05-09 13:30] VITALS: BP 130/70; PULSE 87; RESP 18; O2SAT 97
== END 2022-05-09 13:45 | disposition home or self-care (01) ==
PROVIDERS: Family Medicine Addiction Medicine; Emergency Provider Registered Nurse; PCP Registered Nurse Diabetes Educator
DX: S29.9XXA Unspecified injury of thorax, initial encounter (principal); W11.XXXA Fall on and from ladder, initial encounter
CPT/HCPCS: 36415; 70450; 71260; 74160; 80053; 85025; 99284; Q9967

== ENCOUNTER → 2023-06-10 08:37 | Outpatient (CLI) | payer OTHER, SELFPAY ==
--- NOTE | 2023-06-10 08:41 | DI.RAD.S_ITS ---
PROCEDURE: XR CHEST 2V INDICATIONS: cough TECHNIQUE: 2 views of the chest were acquired. COMPARISON: [facility], CT, CT CHEST ABDOMEN W CON, 05/09/2022, 12:35. FINDINGS: Surgical changes and devices: None. Lungs and pleura: Lungs are clear. No pleural effusions or pneumothorax. Mediastinum: Mediastinal contours are normal. Heart size is normal. Bones and chest wall: No suspicious bony abnormalities. Soft tissues appear unremarkable. IMPRESSION: No acute cardiopulmonary abnormality. Dictated by: Fredi Rodriguez M.D. on 06/10/2023 at 9:14 Approved by: Fredi Rodriguez M.D. on 06/10/2023 at 9:16
[2023-06-10 10:26] LABS: Hemoglobin 13.5 g/dL (12.0-16.0); Mean Corpuscular HGB Conc 33.7 % (30-36); Mean Corpuscular Hemoglobin 32.1 PG (26-34); Mean Corpuscular Volume 95.3 fL (80-100); Platelet Count 276 X10^3/uL (150-400); Red Cell Distribution Width 13.2 % (11.6-14.8); White Blood Cell Count 7.8 X10^3/uL (4.5-11.0)
[2023-06-10 10:47] LABS: Alanine Aminotransferase 24 IU/L (<35); Albumin 4.1 g/dL (3.5-5.0); Albumin Globulin Ratio 1.5 (1.0-2.8); Alkaline Phosphatase 65 U/L (38-126); Aspartate Aminotransferase 22 IU/L (14-36); BUN Creatinine Ratio 13.8 (6-22); Bilirubin Total 0.5 mg/dL (0.2-1.3); Blood Urea Nitrogen 8 mg/dL (7-17); Calcium 9.6 mg/dL (8.4-10.2); Carbon Dioxide 27 mmol/L (22-32); Chloride 105 mmol/L (98-107); Cholesterol 191 mg/dL (140-199); Estimated Glomerular Filt Rate > 60 mL/min (>60); Globulin 2.7 g/dL (1.7-4.1); Glucose 87 mg/dL (70-100); HDL Cholesterol 58 mg/dL (40-60); HEMOLYSIS < 15 (0-50); LDL Cholesterol Calculated 115 mg/dL (<100); Potassium 4.4 mmol/L (3.4-5.1); Sodium 139 mmol/L (137-145); Total Protein 6.8 g/dL (6.3-8.2); Triglycerides 89 mg/dL (35-150)
[2023-06-10 11:16] LABS: TSH w/ Reflex to FT4 1.07 uIU/mL (0.47-4.68)
== END ==
PROVIDERS: PCP Registered Nurse Diabetes Educator; Referring Provider Registered Nurse Diabetes Educator; Visit Provider Registered Nurse Diabetes Educator
DX: Z00.00 Encounter for general adult medical examination without abnormal findings (principal); R05.3 Chronic cough; Z01.419 Encounter for gynecological examination (general) (routine) without abnormal findings
CPT/HCPCS: 36415; 71046; 80053; 80061; 84443; 85027

== ENCOUNTER 2024-03-08 13:39 | Emergency (ER) | payer OTHER, SELFPAY ==
[2024-03-08 13:52] VITALS: BP 169/91; PULSE 70; RESP 17; TEMP 36.3; O2SAT 100; BMI 30.2
--- NOTE | 2024-03-08 14:39 | ED_ITS ---
HPI - Headache General Chief Complaint: Headache Stated Complaint: migraine, vomiting Time Seen by Provider: 03/08/24 14:29 Mode of arrival: Ambulatory History of Present Illness HPI Narrative: 63-year-old female with a history of migraine headaches presenting with a headache and nausea. Symptoms began last night. It was not explosive in onset, she says this is different than her typical migraines in that it was a bit lower in the back of her head. She has not having fevers. She was seen early this morning at urgent care and got a shot of Toradol which has not helped. She still is nauseated. Her Toradol injection with greater than 6 hours ago accordi ng to the patient. Took sumatriptan last night without relief. Related Data Previous Rx's Medication Instructions Recorded triamcinolone acetonide 0.5 % 1 applictn topical DAILY PRN rash 05/15/20 topical cream #45 grams sumatriptan succinate 100 mg 100 mg PO PRN PRN migraine 07/27/21 tablet (Imitrex) headache #30 tabs cyclobenzaprine 10 mg tablet 10 mg PO BEDTIME PRN muscle spasm 06/02/23 #30 tabs meloxicam 7.5 mg tablet 15 mg (2 x 7.5 mg) PO DAILY #60 06/02/23 tabs omeprazole 20 mg capsule,delayed 20 mg PO DAILY PRN GERD #90 caps 06/02/23 release ondansetron HCl 4 mg tablet 4 mg PO Q8H PRN nausea and 03/08/24 vomiting #14 tabs Allergies Allergy/AdvReac Type Severity Reaction Status Date / Time No Known Drug Allergies Allergy Verified 03/08/24 13:55 Patient History Medical History Chronic midline low back pain without sciatica Other low back pain Elevated LDL cholesterol level Hip pain, bilateral Chronic low back pain Adjustment disorder with mixed anxiety and depressed mood Chicken pox (1975) CTS (carpal tunnel syndrome) Chronic headaches Migraines (2009) Surgical History Anesthesia Status post delivery (11/28/95) Family History Father Heart disease Hypertension Mesothelioma Grandfather Cancer Mother Age: 70 COPD (chronic obstructive pulmonary disease) Grandfather Cancer Grandmother Cancer Social History household members: spouse Smoking Status: Never smoker second hand exposure: Yes (I was when I was growing up. My mom and dad smoked.) alcohol intake: current substance use type: does not use Smoking Status: Never smoker alcohol intake frequency: other Substance Use Type: does not use Exam Initial Vital Signs Initial Vital Signs: Vital Signs Temperature 97.4 F L 03/08/24 13:52 Pulse Rate 70 03/08/24 13:52 Respiratory Rate 17 03/08/24 13:52 Blood Pressure 169/91 H 03/08/24 13:52 Pulse Oximetry 100 03/08/24 13:52 Oxygen Delivery Method Room Air 03/08/24 13:52 Const Other: Alert appears to be in no distress, prefers a darkened room HENOR HENOR Other: Normocephalic atraumatic Eyes Other: Pupils are equal round reactive extraocular moves are intact there is no nystagmus Neck Other: Neck is supple Neuro Other: Fluent speech no facial droop or asymmetry no gross motor deficits Course Orders Ordered: Discontinued Medications Diphenhydramine HCl (Diphenhydramine 50 Mg/Ml Vial) 25 mg IV NOW ONE Stop: 03/08/24 14:39 Last Admin: 03/08/24 15:16 Dose: 25 mg Documented By: EMILE Droperidol (Droperidol 5 Mg/2 Ml Vial) 0.625 mg IV NOW ONE Stop: 03/08/24 14:39 Last Admin: 03/08/24 15:07 Dose: 0.625 mg Documented By: EMILE Sodium Chloride (Normal Saline 0.9%) 1,000 mls @ 1,000 mls/hr IV BOLUS ONE Stop: 03/08/24 15:37 Last Infusion: 03/08/24 15:55 Dose: Infused Documented By: Admin: 03/08/24 15:07 Dose: 1,000 mls/hr Documented By: EMILE Ketorolac Tromethamine (Ketorolac 30 Mg/Ml Vial) 15 mg IV NOW ONE Stop: 03/08/24 14:39 Last Admin: 03/08/24 15:12 Dose: 15 mg Documented By: EMILE Reevaluation(s) Reevaluation #1: At 4:00 p.m., the patient was re-evaluated she is feeling better. Will discharge to home Vital Signs Vital signs: Vital Signs - 8 hr 03/08/24 13:52 Temperature 97.4 F L Pulse Rate 70 Respiratory Rate 17 Blood Pressure 169/91 H Pulse Oximetry 100 Oxygen Delivery Method Room Air MDM - Headache MDM Narrative Medical decision making narrative: 53-year-old female with a history of migraine headaches presenting with a headache associated with nausea. Headache does not have red flag features, exam is reassuring with her history of migraines this strikes me as a migraine. She was treated with a cocktail of ketorolac and droperidol with good results. Discharge Plan Departure Patient Disposition: Home Clinical Impression: Migraine Qualifiers: Migraine type: unspecified Status migrainosus presence: without status migrainosus Intractability: not intractable Qualified Code(s): G43.909 - Migraine, unspecified, not intractable, without status migrainosus Activity Restrictions/Additional Instructions: I am glad that you are feeling better. Go home and rest. You can use the previously prescribed on the medication as needed and I would recommend a trial of your regular outpatient migraine meds if you have recurrence of her headache. Follow up soon with your primary care doctor. Return to the emergency department for fevers severe headache uncontrolled vomiting or other acute symptoms Prescriptions: No Action ondansetron HCl 4 mg tablet 4 mg PO Q8H PRN (Reason: nausea and vomiting) Qty: 14 0RF triamcinolone acetonide 0.5 % cream 1 applictn TOP DAILY PRN (Reason: rash) Qty: 45 1RF sumatriptan succinate [Imitrex] 100 mg tablet 100 mg PO PRN PRN (Reason: migraine headache) Qty: 30 2RF Rx Instructions: Take one tab at onset of migraine. May repeat in 2 hours. Maximum of 2 tabs per day. meloxicam 7.5 mg tablet 15 mg PO DAILY Qty: 60 2RF Patient Comments: OVER A MONTH OR SO omeprazole 20 mg capsule,delayed release(DR/EC) 20 mg PO DAILY PRN (Reason: GERD) Qty: 90 1RF cyclobenzaprine 10 mg tablet 10 mg PO BEDTIME PRN (Reason: muscle spasm) Qty: 30 2RF Referrals: Marquez Yuan ARNP [Primary Care Provider] - Stand Alone Forms: Patient Portal/API
[2024-03-08] MEDS: SODIUM CHLORIDE 0.9% 1,000 ML 1000 ML IV (15:07)
[2024-03-08] MEDS: DROPERIDOL 5 MG/2 ML VIAL 0.625 MG IV (15:07)
[2024-03-08] MEDS: KETOROLAC 30 MG/ML VIAL 15 MG IV (15:12)
[2024-03-08] MEDS: diphenhydrAMINE 50 MG/ML VIAL 25 MG IV (15:16)
[2024-03-08 16:12] VITALS: BP 126/77; PULSE 67; RESP 16; O2SAT 99
== END 2024-03-08 16:13 | disposition home or self-care (01) ==
PROVIDERS: Emergency Provider Emergency Medicine; PCP Registered Nurse Diabetes Educator
DX: G43.909 Migraine, unspecified, not intractable, without status migrainosus (principal)
CPT/HCPCS: 96374; 96375; 99283; 99284; J1200; J1790; J1885

== ENCOUNTER → 2024-05-07 09:34 | Outpatient (CLI) | payer OTHER, SELFPAY ==
--- NOTE | 2024-05-07 09:35 | DI.US.S_ITS ---
ULTRASOUND OF LEFT AXILLA: 05/07/2024 CLINICAL: Palpable left axilla lump. Comparison is made to exams dated: 05/07/2024 mammogram, 09/08/2021 mammogram, and 08/29/2020 mammogram - [facility]. Color flow ultrasound of the left axilla was performed. Vidal scale images of the real-time examination were reviewed. There is a benign normal left axillary lymph node. This correlates as palpated. IMPRESSION: BENIGN There is no sonographic evidence of malignancy. The normal left axillary lymph node is benign. Return to annual mammogram screening schedule is recommended. This exam was interpreted at Station ID: [id number]. Electronically Signed By: Mick [email or web address]/jonatan:05/07/2024 21:08:01 letter sent: Clinical Evaluation Ultrasound BI-RADS: 2 Benign
--- NOTE | 2024-05-07 09:35 | DI.MG.S_ITS ---
BILATERAL DIGITAL DIAGNOSTIC MAMMOGRAM 3D/2D: 05/07/2024 CLINICAL: Left lump axilla. Comparison is made to exams dated: 09/08/2021 mammogram, 08/29/2020 mammogram, and 06/15/2018 mammogram - [facility]. There are scattered areas of fibroglandular density in both breasts (category b / 25%-50% glandular tissue). No significant masses, calcifications, or other findings are seen in either breast. IMPRESSION: INCOMPLETE: NEEDS ADDITIONAL IMAGING EVALUATION There is no abnormality seen in the left breast to correspond with the palpable abnormality in the axilla, however, ultrasound is recommended. Based on the Tyrer Cuzick model (a risk assessment model) the patient's lifetime risk is 5.8% and her 10 year risk is 1.5%. According to the ACR, ACS, and NCCN guidelines, an annual breast MRI exam along with mammogram is recommended if the patient's lifetime risk is 20% or greater. This exam was interpreted at Station ID: [id number]. NOTE: For mammograms, a report in lay terms will be sent to the patient. Approximately 15% of breast malignancies will not be visualized mammographically. In the management of a palpable breast mass, a negative mammogram must not discourage biopsy of a clinically suspicious lesion. Electronically Signed By: Mick mckeon/jonatan:05/07/2024 21:06:14 ACR BI-RADS Category 0: Incomplete [id number]
== END ==
PROVIDERS: PCP Registered Nurse Diabetes Educator; Referring Provider Registered Nurse Diabetes Educator; Visit Provider Registered Nurse Diabetes Educator
DX: N64.4 Mastodynia; M79.89 Other specified soft tissue disorders; R92.2 Inconclusive mammogram; M79.622 Pain in left upper arm; R92.323 Mammographic fibroglandular density, bilateral breasts
CPT/HCPCS: 76642; 77066; G0279

== ENCOUNTER → 2024-06-01 06:53 | Outpatient (CLI) | payer OTHER, SELFPAY ==
[2024-06-01 07:47] LABS: Hematocrit 40.3 % (36-46); Hemoglobin 13.8 g/dL (12.0-16.0); Mean Corpuscular HGB Conc 34.4 % (30-36); Mean Corpuscular Hemoglobin 32.9 PG (26-34); Mean Corpuscular Volume 95.7 fL (80-100); Platelet Count 275 X10^3/uL (150-400); Red Blood Cell Count 4.21 X10^6/uL (4.0-5.2); Red Cell Distribution Width 12.9 % (11.6-14.8); White Blood Cell Count 8.4 X10^3/uL (4.5-11.0)
[2024-06-01 08:30] LABS: Alanine Aminotransferase 23 IU/L (<35); Albumin 4.1 g/dL (3.5-5.0); Albumin Globulin Ratio 1.6 (1.0-2.8); Alkaline Phosphatase 80 U/L (38-126); Aspartate Aminotransferase 24 IU/L (14-36); BUN Creatinine Ratio 11.1 (6-22); Bilirubin Total 0.5 mg/dL (0.2-1.3); Blood Urea Nitrogen 7 mg/dL (7-17); Calcium 9.6 mg/dL (8.4-10.2); Carbon Dioxide 25 mmol/L (22-32); Chloride 107 mmol/L (98-107); Cholesterol 190 mg/dL (140-199); Estimated Glomerular Filt Rate > 60 mL/min (>60); Globulin 2.5 g/dL (1.7-4.1); Glucose 90 mg/dL (70-100); HDL Cholesterol 59 mg/dL (40-60); HEMOLYSIS < 15 (0-50); LDL Cholesterol Calculated 108 mg/dL (<100); Potassium 4.5 mmol/L (3.4-5.1); Sodium 139 mmol/L (137-145); Total Protein 6.6 g/dL (6.3-8.2); Triglycerides 116 mg/dL (35-150)
[2024-06-01 08:58] LABS: Estradiol, Total 20.1 pg/mL; Testosterone 29.3 ng/dL (5.71-77.0)
== END ==
PROVIDERS: PCP Registered Nurse Diabetes Educator; Referring Provider Registered Nurse Diabetes Educator; Visit Provider Registered Nurse Diabetes Educator
DX: Z00.00 Encounter for general adult medical examination without abnormal findings (principal); N95.1 Menopausal and female climacteric states
CPT/HCPCS: 36415; 80053; 80061; 82670; 84403; 84443; 85027

== ENCOUNTER → 2024-06-06 09:17 | Outpatient (CLI) | payer OTHER, SELFPAY ==
--- NOTE | 2024-06-06 09:30 | DI.ECHO.S_ITS ---
[place] [facility]---------+ [facility] : : [address] : : [place] : : [id number] : : Phone: [phone] Echocardiogram Report + + :Name: SHARRON PALMA Study Date: 06/06/2024 Height: 62 in : :[facility] ReadingLocation: Weight: 165 lb : : Gender: Female BSA: 1.8 m2 : :: 1970 Age: 53 yrs BP: 124/86 mmHg: :Reason For Study: [place] : :Ordering Physician: GERTRUDE, : :JACQUELINE Performed By: Kylah West : :Referring: JACQUELINE LOREDO : + + Interpretation Summary The left ventricle is normal in size and wall thickness. The left ventricular ejection fraction is normal. The ejection fraction is estimated to be 60-65%. The right ventricle is normal in size and function. There is mild to moderate mitral regurgitation. There is mild tricuspid regurgitation. The right ventricular systolic pressure is estimated to be at least 22 mmHg based on an estimated right atrial pressure of 3 mm Hg. Procedure: A two-dimensional transthoracic echocardiogram with color flow and Doppler was performed. The study quality was technically adequate. There is no prior echocardiogram noted for this patient. The patient was in sinus rhythm with heart rates between 62-68 bpm during the exam. Left Ventricle: The left ventricle is normal in size and wall thickness. There is no thrombus. The ejection fraction is estimated to be 60-65%. The left ventricular ejection fraction is normal. There are no focal wall motion abnormalities. Diastolic parameters suggest probable normal left ventricular diastolic function and normal filling pressures. Right Ventricle: The right ventricle is normal in size and function. Atria: The left atrial size is normal. Right atrial size is normal. There is no Doppler evidence for an interatrial shunt. Mitral Valve: The mitral valve is normal. There is mild to moderate mitral regurgitation. Aortic Valve: The aortic valve is trileaflet. The aortic valve opens well. There is no aortic valve stenosis. No aortic regurgitation is present. Tricuspid Valve: The tricuspid valve is normal in structure and function. There is mild tricuspid regurgitation. The right ventricular systolic pressure is estimated to be at least 22 mmHg based on an estimated right atrial pressure of 3 mm Hg. Pulmonic Valve: The pulmonic valve leaflets are thin and pliable; valve motion is normal. There is trace pulmonic regurgitation. Great Vessels: The aortic root is normal size. The dimensions of the ascending aorta are normal. The IVC is of normal diameter and collapses greater than 50% with a sniff. This suggests a low right atrial pressure of 3 mm Hg. Pericardium/ Pleura There is no pericardial effusion. There is no pleural effusion. MMode/2D Measurements & Calculations LVIDd: 4.2 cm LVOT diam: 2.0 cm LVIDs: 3.0 cm Ao root diam: 2.6 cm FS: 29.8 % asc Aorta Diam: 3.0 cm EPSS: 0.47 cm Ao Arch Diam (Prox Trans): 2.9 cm IVSd: 0.72 cm LVPWd: 0.82 cm LV barnett. diameter/BSA (cm/m^2): 2.4 LV sys. diameter/BSA (cm/m^2): 1.7 LA A2 area: 13.0 cm2 RA long axis: 4.3 cm LA A4 area: 16.5 cm2 RA area: 14.2 cm2 LA length (vol): 5.3 cm RA vol: 39.5 ml LA vol: 34.4 ml RA : 22.4 ml/m2 LA vol index: 19.5 ml/m2 IVC diam: 1.0 cm RVD1 (basal): 3.0 cm TAPSE: 1.7 cm Doppler Measurements & Calculations Ao V2 max: 146.0 cm/sec LVOT Max Kai: 104.7 cm/sec Ao V2 mean: 101.3 cm/sec LV V1 max P.4 mmHg Ao max P.5 mmHg LV V1 VTI: 22.2 cm Ao mean P.6 mmHg JOSHUA(I,D): 2.2 cm2 Ao V2 VTI: 31.2 cm JOSHUA(V,D): 2.2 cm2 sev ratio: 0.71 JOSHUA indexed to BSA (cm^2/m^2): 1.2 MV E max kai: 60.1 cm/sec TR max kai: 218.3 cm/sec MV A max kai: 49.4 cm/sec TR max P.1 mmHg MV E/A: 1.2 PA V2 max: 93.9 cm/sec Med Peak E' Kai: 9.5 cm/sec PA V2 mean: 66.2 cm/sec E/E' med: 6.3 PA mean P.0 mmHg Lat Peak E' Kai: 13.9 cm/sec PA pr(Accel): 39.6 mmHg E/E' lat: 4.3 E/e' average: 5.3 MV dec time: 0.19 sec SV(LVOT): 68.7 ml Reading Physician:04:05 PM
== END ==
LOC: ECHO 09:18
PROVIDERS: PCP Registered Nurse Diabetes Educator; Referring Provider Registered Nurse Diabetes Educator; Visit Provider Registered Nurse Diabetes Educator
DX: Z00.00 Encounter for general adult medical examination without abnormal findings (principal); R01.1 Cardiac murmur, unspecified; I34.0 Nonrheumatic mitral (valve) insufficiency; I07.1 Rheumatic tricuspid insufficiency
CPT/HCPCS: 93306

== ENCOUNTER → 2025-05-09 08:20 | Outpatient (CLI) | payer OTHER, SELFPAY | PROVIDERS: PCP Registered Nurse Diabetes Educator; Referring Provider Registered Nurse Diabetes Educator; Visit Provider Registered Nurse Diabetes Educator | DX: M79.604 Pain in right leg (principal); M79.605 Pain in left leg | CPT/HCPCS: 36415; 85379 ==

== ENCOUNTER → 2025-05-09 13:07 | Outpatient (CLI) | payer OTHER, SELFPAY ==
--- NOTE | 2025-05-09 13:08 | DI.US.S_ITS ---
PROCEDURE: US PERIPH VENOUS LOW EXTREM BI INDICATIONS: Bilateral lower extremity pain, swelling, elevated D-dimer, clinical suspicion of deep vein thrombosis TECHNIQUE: Real-time imaging, as well as color and pulse Doppler interrogation, were performed of the deep veins of both legs from the inguinal ligament to the popliteal fossa, with documentation of the visualized calf veins. 25 images COMPARISON: None. FINDINGS: No ultrasound evidence of deep vein thrombosis in the bilateral lower extremities. Right: The common femoral, femoral, popliteal, and the visualized calf veins are normally compressible, and free of intraluminal thrombus. Color and pulse Doppler demonstrate normal phasic intravascular flow. There is normal augmentation response to distal compression maneuver. Left: The common femoral, femoral, popliteal, and the visualized calf veins are normally compressible, and free of intraluminal thrombus. Color and pulse Doppler demonstrate normal phasic intravascular flow. There is normal augmentation response to distal compression maneuver. IMPRESSION: No ultrasound evidence of deep vein thrombosis in the bilateral lower extremities. Dictated by: Syd Valdez M.D. on 05/09/2025 at 13:48 Approved by: Syd Valdez M.D. on 05/09/2025 at 13:49
== END ==
PROVIDERS: PCP Registered Nurse Diabetes Educator; Referring Provider Registered Nurse Diabetes Educator; Visit Provider Registered Nurse Diabetes Educator
DX: M79.604 Pain in right leg (principal); M79.605 Pain in left leg; R79.89 Other specified abnormal findings of blood chemistry; M79.89 Other specified soft tissue disorders
CPT/HCPCS: 36415; 85379; 93970

== ENCOUNTER → 2025-07-05 07:28 | Outpatient (CLI) | payer OTHER, SELFPAY ==
[2025-07-05 08:28] LABS: Hematocrit 38.8 % (36-46); Hemoglobin 13.4 g/dL (12.0-16.0); Mean Corpuscular HGB Conc 34.5 % (30-36); Mean Corpuscular Hemoglobin 32.2 PG (26-34); Mean Corpuscular Volume 93.4 fL (80-100); Platelet Count 271 X10^3/uL (150-400)
[2025-07-05 08:44] LABS: Albumin 4.3 g/dL (3.5-5.0); Albumin Globulin Ratio 1.6 (1.0-2.8); Alkaline Phosphatase 83 U/L (38-126); Blood Urea Nitrogen 12 mg/dL (7-17); Calcium 9.6 mg/dL (8.4-10.2); Carbon Dioxide 24 mmol/L (22-32); Chloride 108 mmol/L (98-107); Estimated Glomerular Filt Rate > 60 mL/min (>60); Globulin 2.7 g/dL (1.7-4.1); Glucose 98 mg/dL (70-99); HDL Cholesterol 67 mg/dL (40-60); HEMOLYSIS < 15 (0-50); Potassium 4.5 mmol/L (3.4-5.1); Sodium 139 mmol/L (137-145); Total Protein 7.0 g/dL (6.3-8.2)
[2025-07-05 08:45] LABS: Alanine Aminotransferase 23 IU/L (<35); Cholesterol 192 mg/dL (140-199); Triglycerides 83 mg/dL (35-150)
[2025-07-05 09:14] LABS: TSH w/ Reflex to FT4 1.11 uIU/mL (0.47-4.68)
== END ==
PROVIDERS: PCP Registered Nurse Diabetes Educator; Referring Provider Registered Nurse Diabetes Educator; Visit Provider Registered Nurse Diabetes Educator
DX: Z00.00 Encounter for general adult medical examination without abnormal findings (principal); E78.5 Hyperlipidemia, unspecified; M79.604 Pain in right leg; M79.605 Pain in left leg
CPT/HCPCS: 36415; 80053; 80061; 84443; 85027; 85379

== ENCOUNTER → 2025-07-06 07:37 | Outpatient (CLI) | payer OTHER, SELFPAY ==
--- NOTE | 2025-07-06 07:38 | DI.MG.S_ITS ---
MM screening mammo BI: 07/06/2025. BI-RADS: 1 CLINICAL: 54-year old female for bilateral screening mammogram. Tyrer-Cuzick lifetime risk of 3.3%. No personal or first-degree family history of breast cancer. PRIOR EXAMS 05/07/2024, 09/08/2021, 08/29/2020, 06/15/2018. MAMMOGRAPHY TECHNIQUE: 2D and 3D (tomosynthesis) digital mammographic views obtained, with additional images as needed for full coverage. Current study was also evaluated with a Computer Aided Detection (CAD) system. DENSITY A. The breasts are almost entirely fatty. MAMMOGRAPHY FINDINGS Bilateral: No suspicious mass, asymmetry, microcalcification, or other abnormality seen. IMPRESSION: * No evidence of malignancy. RECOMMENDATIONS Bilateral * Annual screening mammography. OVERALL ASSESSMENT CATEGORY BI-RADS-1: Negative. [employer] recommends annual screening mammography beginning at age 40 for women with average risk of breast cancer. ELECTRONICALLY SIGNED: Goldy Evans M.D. on 07/06/2025 at 09:49:47 PM PT Interpreting Station ID: [id number]
== END ==
PROVIDERS: PCP Registered Nurse Diabetes Educator; Referring Provider Registered Nurse Diabetes Educator; Visit Provider Registered Nurse Diabetes Educator
DX: Z12.31 Encounter for screening mammogram for malignant neoplasm of breast (principal); R92.313 Mammographic fatty tissue density, bilateral breasts
CPT/HCPCS: 77063; 77067